=== PATIENT | male | born 1975 | race Caucasian/White ===

== ENCOUNTER 2017-04-01 10:00 | Inpatient (IN) | payer OTHER ==
--- NOTE | ~2017-04-01 | PA ---
Unit #: [id number] #: [id number] Patient: AUTUMN ALBERT [id number] [facility] [address] [place] [address] [id number] I MR#: [id number] NAME: AUTUMN ALBERT. ROOM: [facility] Age: 41 Sex: M Admission Date: 04/01/2017 : 1975 Date of Assessment: 04/02/2017 Attending Physician: Autumn Motta M.D. Admitting Physician: Autumn Motta M.D. Primary Care Physician: Primary Care Physician No PSYCHIATRIC ASSESSMENT IDENTIFYING INFORMATION The patient is a 41-year-old homeless white male admitted following a heroin overdose. CHIEF COMPLAINT Overdose INFORMANT The patient, reliability is fair. HISTORY OF PRESENT ILLNESS The patient is a 41-year-old white male last discharged from this facility in September of this year. He has a history of methamphetamine and alcohol use but reports that he recently relapsed on heroin. He unintentionally overdosed yesterday and required three shots of Narcan to revive. The patient reports that this was not a suicide attempt and denies current suicidal or homicidal ideation. He also reports that he has been abusing alcohol and Xanax. The patient's currently prescribed medications include trazodone and Cymbalta as well as Keppra. As noted previously the patient is currently homeless and is expressing interest in residential chemical dependence treatment. He did complete recovery works approximately one and half years ago. For more complete history of present illness please refer to previous dictated notes. PAST PSYCHIATRIC HISTORY Reviewed no changes. PAST MEDICAL HISTORY Reviewed no changes. MEDICATIONS Trazodone, Cymbalta, lisinopril, Clonidine, Keppra, Celexa. ALLERGIES None. FAMILY HISTORY Reviewed no changes. SOCIAL HISTORY Reviewed no changes. MENTAL STATUS EXAMINATION At this time reveals the patient to be a well-developed, well-nourished Unit #: [id number] #: [id number] Patient: AUTUMN ALBERT white male, appearing his stated age. Of note are two large abrasions on the patient's forehead where he fell forward after overdosing. The patient is awake, alert, oriented in spheres. His mood is euthymic. His affect congruent. Speech is generally relevant and coherent. There are no gross deficits to memory or cognition noted. Intelligence is judged to be in the average range based on fund of knowledge. The patient is cooperative throughout the interview. He is currently reporting no suicidal or homicidal ideation or psychotic features. Judgment and insight appear to be intact. ASSETS AND LIABILITIES ASSETS: Motivation for change. LIABILITIES: Homelessness, lack or resources. DIAGNOSTIC IMPRESSION Opioid use disorder, alcohol use disorder, sedative hypnotic use disorder, mood disorder unspecified, hypertension, seizure disorder. TREATMENT PLAN The patient remains hospitalized for safety and stabilization. We will continue home medications and a routine detoxification protocol for sedative hypnotics, alcohol and opioids have been initiated. ESTIMATED LENGTH OF STAY Five to seven days with followup to take place through the auspices of community mental health resources. Dictated by... Autumn Motta M.D. CASEY/keeley TD: 04/02/2017 22:27 JOB #: [id number] PSYCHIATRIC ASSESSMENT Page 1 of 1 X Autumn Motta MD X PSYCHIATRIC ASSESSMENT
--- NOTE | ~2017-04-01 | HP ---
Unit #: [id number] #: [id number] Patient: TYLER ALBERT [id number] [facility] [address] [place] [address] [id number] I MR#: [id number] NAME: TYLER ALBERT. ROOM: [facility] Age: 41 Sex: M Admission Date: 04/01/2017 : 1975 Attending Physician: Tyler Motta M.D. Admitting Physician: Tyler Motta M.D. Primary Care Physician: Primary Care Physician No HISTORY AND PHYSICAL HISTORY OF PRESENT ILLNESS Tyler is a 41-year-old male admitted on 04/01/2017 to [facility] for detox from alcohol, benzos, heroin and meth. PAST MEDICAL HISTORY 1. Hypertension and seizure disorder. 2. Current pneumonia diagnosed at [facility]. Please see medical consult. PAST SURGICAL HISTORY Double pneumothorax when he was 16 years old that required chest tube placement. SOCIAL HISTORY Smokes 1 pack of cigarettes daily. Drinks a fifth to a half gallon of alcohol daily. He currently is and homeless. He also reports using benzos, heroin and methamphetamine daily. FAMILY HISTORY Noncontributory. REVIEW OF SYSTEMS CONSTITUTIONAL: No fever or chills. HEENT: Denies any sore throat, ear pain or runny nose. CARDIOVASCULAR: Denies chest pain, irregular heart rhythm or palpitations. CHEST: Denies shortness of breath or cough. No hemoptysis. GASTROINTESTINAL: Denies nausea, vomiting, diarrhea or chronic constipation. ENDOCRINE: Denies history of increased thirst or urination. No recent significant weight loss or gain. GENITOURINARY: Denies dysuria, frequency, or hematuria. SKIN: Denies any rashes. HEMATOLOGIC: Denies history of increased bleeding or bruising. MUSCULOSKELETAL: Denies any hot, swollen joints. No generalized muscle pain. NEUROLOGIC: Denies problems with vision or speech. No frequent, severe headaches. No numbness, tingling or weakness in any extremities. Denies loss of bladder or bowel control. CURRENT MEDICATIONS 1. Trazodone 2. Cymbalta Unit #: [id number] #: [id number] Patient: TYLER ALBERT 3. Lisinopril 4. Clonidine 5. Keppra 6. Celexa ALLERGIES No known drug allergies. PHYSICAL EXAMINATION GENERAL: Alert, oriented, in no acute distress. VITAL SIGNS: Blood pressure 140/93, heart rate 102, respirations 18, temperature 98.1. HEIGHT: 5 foot 10 inches. WEIGHT: 150 pounds. SKIN: Warm and dry without rash or lesion. HEENT: Normocephalic. TMs not viewed. Oral and nasal passages clear. Conjunctivae clear. PERRLA. EOMs intact. NECK: Supple without lymphadenopathy or thyromegaly. HEART: Regular rate and rhythm without murmur. LUNGS: Clear. ABDOMEN: Soft, nontender, without masses or hepatosplenomegaly. : Not done. EXTREMITIES: No evidence of cyanosis, clubbing or edema. Moves all without focal deficit. NEUROLOGICAL: Grossly within normal limits. Cranial Nerves: II: Visual porter are intact. III, IV AND : Extraocular movements are intact. Pupils are equal, round and reactive to light. V: Facial sensation is grossly normal. VII: Facial movements and expression are normal. VIII: Auditory acuity grossly intact. IX, X: Uvula is midline. Phonation is normal. XI: Patient shrugs shoulders and turns head normally. XII: Tongue protrudes in the midline. Sensory and Motor Function: Sensory and motor sensation is grossly normal. Motor: moves all extremities well. Coordination: Gait is normal. Deep Tendon Reflexes: Intact. IMPRESSION Psychiatric admission. RECOMMENDATIONS Psychiatric, per psychiatrist. MEDICAL: I see no contraindications to participating in facility's activities. MEDICAL PROGNOSIS Good. MEDICAL CONDITION Stable. Dictated by... Rich CalderaPParishRKasie Unit #: [id number] #: [id number] Patient: TYLER ALBERT UYEN/keeley TD: 04/02/2017 23:16 JOB #: [id number] HISTORY AND PHYSICAL Page 1 of 1 X KALIE MCDONALD APRN HISTORY AND PHYSICAL
--- NOTE | ~2017-04-01 | A ---
[facility] Nutrition Therapy DATE: 04/03/17 Patient: AUTUMN ALBERT Physician: DI Address: 2011 [facility] Room/Bed: [address], Zip: [place] [address] Admit Date: 04/01/17 Date of : [birth year] Height: 5 10 Weight: 149 68.0388 NUTRITIONAL ASSESSMENT: REASON: UNINTENTIONAL WEIGHT LOSS PATIENT ADMITTED FOR HEROIN OVERDOSE AND POLYSUBSTANCE DETOX PMH: SEIZURE D/O, HTN Anthropometrics: HT: 70", WT: 150#, BMI: 21.5, %IBW: 90 Labs: NO NEW LABS Meds: DESYREL, KEPPRA, ZESTRIL, DETOX PROTOCOL Assessment: PATIENT IS A 41 Y/O MALE ADMITTED FOR HEROIN OVERDOSE AND POLYSUBSTANCE DETOX. PATIENT IS CURRENTLY UNEMPLOYED, HOMELESS, SMOKES 1 PPD, DRINKS 1/2 GALLON ETOH DAILY, HAS DAILY HEROIN USE, AND FREQUENT MARIJUANA, METH, XANAX, AND SYNTHETIC SUBSTANCE ABUSE. PER NEEDS ASSESSMENT PATIENT STATED A FAIR APPETITE WITH A 203 WEIGHT LOSS OVER LAST 6 MONTHS, AND HE HAS NOT BEEN SLEEPING. WEIGHT HX PER MEDITECH SHOWS NO WEIGHT CHANGES SINCE LAST ADMIT 6 MONTHS AGO AND A 3# WEIGHT GAIN X 1 YEAR. NURSING REPORTS GOOD PO INTAKES. CURRENT PSYCH MEDS MAY CAUSE WEIGHT AND APPETITE FLUCTUATIONS. THERE ARE NO SKIN OR GI ISSUES NOTED ATT. PATIENT DOES CURRENTLY HAVE PNEUMONIA AND IS ON ANTIBIOTICS. PATIENT IS ON A REGULAR DIET. Dx: NO NUTRITION DX Intervention: REGULAR DIET, MEDS PER MD, DETOX, PSYCH Monitoring, Evaluation and Goals: 1. ADEQUATE PO INTAKES >50% OF MEALS 2. PREVENT, CORRECT MICRO/MACRO NUTRIENT DEFICIENCIES 3. WEIGHT; MAINTAIN CURRENT WEIGHT MONITOR: WEIGHTS, LABS, PO/FLUID INTAKES Recommendations: 1. CONTINUE REGULAR DIET TOLERATED. OFFER SNACKS BETWEEN MEALS. IF PATIENT HAS C/O HUNGER PLEASE SEND ORDER FOR LARGE PORTION ENTREES AND RD WILL APPROVE 2. ENCOURAGE ADEQUATE PO AND FLUID INTAKES 3. OBTAIN WEIGHTS ROUTINELY (EVERY 3-4 DAYS) [facility] Nutrition Therapy DATE: 04/03/17 Patient: AUTUMN ALBERT Physician: DI Address: [address] [facility] Room/Bed: [address], Zip: [place] [address] Admit Date: 04/01/17 Date of : [birth year] Height: 5 10 Weight: [address] TO F/U PER PROTOCOL AND PRN R/T PATIENT NOT AT NUTRITIONAL RISK ATT Respectfully, ABELINO ULRICH, RD, LD [employer] and Nutritional Services [facility] cc: client file
--- NOTE | ~2017-04-01 | PN ---
Unit #: [id number] #: [id number] Patient: TYLER ALBERT [id number] [facility] [address] [place] [address] [id number] I MR#: [id number] NAME: TYLER ALBERT. ROOM: [facility] Age: 41 Sex: M Admission Date: 04/01/2017 : 1975 Attending Physician: Tyler Motta M.D. Admitting Physician: Tyler Motta M.D. Primary Care Physician: Primary Care Physician Hellen HAGER PROGRESS NOTES DATE 04/03/2017 DISCUSSION The patient is continuing to report significant symptoms of alcohol and opioid withdrawal but is pleasant and cooperative in her interactions with peers and staff and is active within the therapeutic milieu. He is expressing interest in residential chemical dependence treatment in the [place], [place] area and has begun with the aide of his brother investigation into such placement. Dictated by... Tyler Motta M.D. CB/keeley TD: 04/04/2017 05:57 JOB #: [id number] [facility] PROGRESS NOTES Page 1 of 1 X Tyler Motta MD PROGRESS NOTE
--- NOTE | ~2017-04-01 | DS ---
Unit #: [id number] #: [id number] Patient: AUTUMN ALBERT [id number] [facility] [address] [place] [address] [id number] I MR#: [id number] NAME: AUTUMN ALBERT. ROOM: [facility] Age: 41 Sex: M Admission Date: 04/01/2017 : 1975 Discharge Date: 04/04/2017 Attending Physician: Autumn Motta M.D. Primary Care Physician: Primary Care Physician No DISCHARGE SUMMARY REASON FOR ADMISSION The patient is a 41-year-old white male, admitted with a history of opioid and alcohol use. HOSPITAL COURSE The patient was admitted to the [facility] and placed on suicide precautions. He was continued on previously prescribed home medications including trazodone, Cymbalta, lisinopril, clonidine, Keppra, and Celexa. The patient exhibited little in the way of signs or symptoms of withdrawal, though he did complain of shaking as he demanded that he would be given Ativan for his anxiety but was politely informed that he was not meeting criteria for continued administration of this medication. Upon learning this, the patient demanded discharge from the hospital. He denied suicidal ideation. The danger of untreated alcohol and sedative hypnotic withdrawal was discussed with the patient and the patient's discharge was made against medical advice. 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 DISPOSITION ON DISCHARGE The patient is discharged against medical advice. The patient will continue previously prescribed medications including Desyrel 100 mg at h.s. p.r.n. insomnia, Cymbalta 30 mg daily for depression, Zestril 10 mg once daily for hypertension, Keppra 500 mg b.i.d. for seizure disorder, Celexa 40 mg once daily for depression, Catapres 0.1 mg t.i.d. daily for hypertension, and Augmentin 875 mg b.i.d. for injection site abscess. DISCHARGE INSTRUCTIONS No dietary or physical restrictions were placed upon the patient at the time of discharge. As noted previously, the patient's discharge is against medical advice and the patient is apprised of the risks of untreated alcohol and sedative hypnotic withdrawal including seizures, DTs, and . Dictated by... Autumn Motta M.D. CB/pattie Unit #: [id number] #: [id number] Patient: AUTUMN ALBERT TD: 04/04/2017 15:48 JOB #: [id number] DISCHARGE SUMMARY Page 1 of 1 X Autumn Motta MD X DISCHARGE SUMMARY
--- NOTE | ~2017-04-01 | CO ---
Unit #: [id number] #: [id number] Patient: TYLER ALBERT [id number] [facility] [address] [place] [address] [id number] I MR#: [id number] NAME: TYLER ALBERT. ROOM: P183 Age: 41 Sex: M Admission Date: 04/01/2017 : 1975 Attending Physician: Tyler Motta M.D. Primary Care Physician: Primary Care Physician No Consultation Date: 04/01/2017 CONSULTATION REPORT HISTORY OF PRESENT ILLNESS Tyler reports that he OD'd yesterday on heroine and was taken to [facility] ER where he was coded and did receive chest compression. He did receive an x-ray that showed possible pneumonia. This was verified by CT of chest, [facility] called today to discuss this. Tyler reports that he is not having any shortness of air, does have some chest pain, but believes that is likely due to chest compression and has also had some coughing. He has a history of double pneumothorax when he was 16 years old spontaneous. He reports a family history of pneumothorax as well. No other complaints. PHYSICAL EXAMINATION CARDIAC: Regular rate and rhythm. No murmur, gallop, or rub. RESPIRATORY: Clear to auscultation bilaterally. ASSESSMENT AND PLAN Pneumonia. We will begin Augmentin 875 mg/125 mg p.o. b.i.d. for 10 days. Please notify if the patient develops fever, shortness of breath, or if cough does not improve. Dictated by... Harley Caldera/pattie TD: 04/02/2017 01:16 JOB #: [id number] CONSULTATION REPORT Page 1 of 1 X KALIE MCDONALD APRN X CONSULTATION REPORT
[2017-04-05 10:16] LABS: AMPHETAMINE NEG (NEG); BARBITURATES POS (NEG); BENZODIAZEPINES POS (NEG); COCAINE NEG (NEG); MARIJUANA NEG (NEG); OPIATES NEG (NEG); TRICYCLIC ANTIDEPRESSANTS NEG (NEG); U METHADONE NEG (NEG)
[2017-04-07 15:51] LABS: HA AB IGM (HEPPAN) Nonreactive (()); HB CORE AB IGM (HEPPAN) Nonreactive (Nonreactive); HB S AG (HEPPAN) Nonreactive (Nonreactive); HEP C AB (HEPPAN) Reactive (Nonreactive)
== END 2017-04-04 15:35 | disposition left against medical advice (07) | DRG 894 ==
LOC: P1E 12:52
PROVIDERS: Specialist
PROC: HZ2ZZZZ Detoxification Services for Substance Abuse Treatment (ICD-10-PCS; principal; 2017-04-01)
DX: F11.10 Opioid abuse, uncomplicated (principal); J18.9 Pneumonia, unspecified organism; F13.10 Sedative, hypnotic or anxiolytic abuse, uncomplicated; F10.10 Alcohol abuse, uncomplicated; F39 Unspecified mood [affective] disorder; G40.909 Epilepsy, unspecified, not intractable, without status epilepticus; I10 Essential (primary) hypertension; Z59.0 Homelessness; F17.210 Nicotine dependence, cigarettes, uncomplicated; T40.1X1D Poisoning by heroin, accidental (unintentional), subsequent encounter
CPT/HCPCS: 80074; 80307; 86592; 87522; 87806

== ENCOUNTER 2017-05-16 19:23 | Inpatient (IN) | payer OTHER ==
[~2017-05-16] VITALS: Ht 177.8 cm; Wt 63.5 kg
--- NOTE | ~2017-05-16 | DS ---
Unit #: [id number] #: [id number] Patient: AUTUMN ALBERT [id number] [facility] [address] [place] [address] [id number] I MR#: [id number] NAME: AUTUMN ALBERT. ROOM: [facility] Age: 41 Sex: M Admission Date: 05/16/2017 : 1975 Discharge Date: 05/18/2017 Attending Physician: Autumn Motta M.D. Primary Care Physician: Primary Care Physician No DISCHARGE SUMMARY REASON FOR ADMISSION The patient is a 41-year-old white male admitted with recurrence of alcohol abuse. HOSPITAL COURSE The patient was admitted to the [facility] Unit and placed on routine detoxification protocol for alcohol. Her medications were continued. On 05/17/2017, the patient did have an interview with a local residential chemical dependence treatment facility and was accepted there. Discharged was scheduled to take place the following day. FINAL DIAGNOSES 1. Alcohol use disorder. 2. Mood disorder unspecified. 3. Seizure disorder. 4. Hypertension. DISPOSITION ON DISCHARGE The patient was discharged on the following medications: 1. Catapres 0.1 mg at bedtime for hypertension. 2. Keppra 500 mg twice daily for seizures. 3. Desyrel 100 mg at bedtime for p.r.n. insomnia. 4. Citalopram 40 mg daily for depression. 5. Zestril 10 mg once daily for hypertension. 6. Cymbalta 30 mg once daily for depression. DIET AND ACTIVITY No dietary or physical restrictions placed on the patient at the time of discharge. FOLLOWUP Followup will take place through the auspices of community mental health and chemical dependence treatment resources. Dictated by... Autumn Motta M.D. CB/ching TD: 05/18/2017 09:52 JOB #: [id number] Unit #: [id number] #: [id number] Patient: AUTUMN ALBERT DISCHARGE SUMMARY Page 1 of 1 X Autumn Motta MD DISCHARGE SUMMARY
--- NOTE | ~2017-05-16 | DS ---
Unit #: [id number] #: [id number] Patient: AUTUMN ALBERT [id number] [facility] [address] [place] [address] [id number] I MR#: [id number] NAME: AUTUMN ALBERT. ROOM: [facility] Age: 41 Sex: M Admission Date: 05/16/2017 : 1975 Discharge Date: Attending Physician: Autumn Motta M.D. Primary Care Physician: Primary Care Physician No DISCHARGE SUMMARY ADDENDUM DATE OF DICTATION 05/18/2017 The patient's discharge has been held by one day secondary to bed availability at the residential facility to which he will be going. He will be discharged tomorrow morning. No changes in medication will be undertaken and the patient's detox continues uneventfully. Dictated by... Autumn Motta M.D. CB/chriss TD: 05/18/2017 15:04 JOB #: [id number] DISCHARGE SUMMARY Page 1 of 1 X Autumn Motta MD X DISCHARGE SUMMARY
--- NOTE | ~2017-05-16 | HP ---
Unit #: [id number] #: [id number] Patient: TYLER ALBERT [id number] [facility] [address] [place] [address] [id number] I MR#: [id number] NAME: TYLER ALBERT. ROOM: 74 Age: 41 Sex: M Admission Date: 05/16/2017 : 1975 Attending Physician: Tyler Motta M.D. Admitting Physician: Tyler Motta M.D. Primary Care Physician: Primary Care Physician No HISTORY AND PHYSICAL HISTORY OF PRESENT ILLNESS Tyler is a 41 year old admitted to [facility] because of his continued polysubstance abuse which includes heroin and methamphetamine. He has had other admissions to this facility for treatment of the same. PAST MEDICAL HISTORY 1. Long history of illicit substance abuse to include heroin and methamphetamine. 2. Hepatitis C. 3. History of withdrawal seizures. 4. History of bilateral spontaneous pneumothorax as a teenager. PAST SURGICAL HISTORY Nothing reported. ALLERGIES No known drug allergies. SOCIAL HISTORY He smokes 1 pack per day. Drinks alcohol on occasion. Admits to a long history of illicit substance abuse. FAMILY HISTORY Medically noncontributory. REVIEW OF SYSTEMS CONSTITUTIONAL: No fever or chills. HEENT: Denies any sore throat, ear pain or runny nose. CARDIOVASCULAR: Denies chest pain, irregular heart rhythm or palpitations. CHEST: Denies shortness of breath or cough. No hemoptysis. GASTROINTESTINAL: Denies nausea, vomiting, diarrhea or chronic constipation. ENDOCRINE: Denies history of increased thirst or urination. No recent significant weight loss or gain. GENITOURINARY: Denies dysuria, frequency, or hematuria. SKIN: Denies any rashes. HEMATOLOGIC: Denies history of increased bleeding or bruising. MUSCULOSKELETAL: Denies any hot, swollen joints. No generalized muscle pain. NEUROLOGIC: Denies problems with vision or speech. No frequent, severe headaches. No numbness, tingling or weakness in any extremities. Denies loss of bladder or bowel control. Unit #: [id number] #: [id number] Patient: TYLER ALBERT CURRENT MEDICATIONS 1. Detox protocol. 2. Zestril 10 mg daily. 3. Celexa 40 mg daily. PHYSICAL EXAMINATION GENERAL: Alert, well-nourished, in no apparent distress. VITAL SIGNS: Blood pressure 120/90, heart rate 96, respirations 16, temperature 98.6. WEIGHT: 140. HEIGHT: 5 feet 10 inches. SKIN: Warm and dry without rash or lesion. HEENT: Normocephalic. TMs not viewed. Oral and nasal passages clear. Conjunctivae clear. PERRLA. EOMs intact. NECK: Supple without lymphadenopathy or thyromegaly. HEART: Regular rate and rhythm without murmur. LUNGS: Clear. ABDOMEN: Soft, nontender. : Not done. EXTREMITIES: No evidence of cyanosis, clubbing or edema. Moves all without focal deficit. NEUROLOGICAL: Grossly within normal limits. Cranial Nerves: II: Visual porter are intact. III, IV AND : Extraocular movements are intact. Pupils are equal, round and reactive to light. V: Facial sensation is grossly normal. VII: Facial movements and expression are normal. VIII: Auditory acuity grossly intact. IX, X: Uvula is midline. Phonation is normal. XI: Patient shrugs shoulders and turns head normally. XII: Tongue protrudes in the midline. Sensory and Motor Function: Sensory and motor sensation is grossly normal. Motor: moves all extremities well. Coordination: Gait is normal. Deep Tendon Reflexes: Intact. IMPRESSION Psychiatric admission. RECOMMENDATIONS PSYCHIATRIC: Per psychiatrist. MEDICAL: See no contraindication to participate in facility's activities. MEDICAL PROGNOSIS Good. MEDICAL CONDITION Stable. Dictated by... Daniella Alanis P.A.-C. for Qian Small/chriss TD: 05/17/2017 22:13 JOB #: [id number] Unit #: [id number] #: [id number] Patient: TYLER ALBERT HISTORY AND PHYSICAL Page 1 of 1 X Daniella Alanis HISTORY AND PHYSICAL
--- NOTE | ~2017-05-16 | DS ---
Unit #: [id number] #: [id number] Patient: AUTUMN ALBERT [id number] [facility] [address] [place] [address] [id number] I MR#: [id number] NAME: AUTUMN ALBERT. ROOM: [facility] Age: 41 Sex: M Admission Date: 05/16/2017 : 1975 Discharge Date: Attending Physician: Autumn Motta M.D. Primary Care Physician: Primary Care Physician No DISCHARGE SUMMARY REASON FOR ADMISSION The patient is a 41-year-old white male admitted with recurrence of alcohol abuse. HOSPITAL COURSE The patient was admitted to the [facility] unit and placed on routine detoxification protocol for alcohol. Home medications were continued. On 05/17, the patient did have an interview with a local residential chemical dependence treatment facility and was accepted there. Discharge was scheduled to take place the following day. DISCHARGE DIAGNOSES 1. Alcohol use disorder 2. Mood disorder, unspecified 3. Seizure disorder 4. Hypertension DISPOSITION ON DISCHARGE The patient is discharged home DISCHARGE MEDICATIONS 1. Catapres 0.1 mg at bedtime for hypertension 2. Keppra 500 mg daily for seizure disorder 3. Desyrel 100 mg at bedtime for p.r.n. insomnia 4. Citalopram 40 mg daily for depression 5. Zestril 10 mg once daily for hypertension 6. Cymbalta 30 mg once daily for depression FOLLOW UP To take place through the auspices of [facility] . DIET AND ACTIVITY No dietary or physical restrictions placed on the patient at the time of discharge. Dictated by... Autumn Motta M.D. Unit #: [id number] #: [id number] Patient: AUTUMN ALBERT CB/to TD: 05/17/2017 22:31 JOB #: [id number] DISCHARGE SUMMARY Page 1 of 1 X Autumn Motta MD X DISCHARGE SUMMARY
--- NOTE | ~2017-05-16 | PA ---
Unit #: [id number] #: [id number] Patient: AUTUMN ALBERT [id number] [facility] [address] [place] [address] [id number] MR#: [id number] NAME: AUTUMN ALBERT. ROOM: [facility] Age: 41 Sex: M Admission Date: 05/16/2017 : 1975 Date of Assessment: 05/17/2017 Attending Physician: Autumn Motta M.D. Admitting Physician: Autumn Motta M.D. Primary Care Physician: Primary Care Physician No PSYCHIATRIC ASSESSMENT IDENTIFYING INFORMATION The patient is a 41-year-old white male admitted to the [address] [place] [address] with recurrent abuse of alcohol. INFORMANT(S) Patient. RELIABILITY Good. CHIEF COMPLAINT None given. HISTORY OF PRESENT ILLNESS The patient is a 41-year-old white male last discharged from this facility in March of this year. He returns having again began using alcohol at a rate of about a fifth of hard liquor on a daily basis. The patient reports that he has had recent seizures related to alcohol withdrawal. For a more complete history of present illness, please refer to previous dictated notes. PAST PSYCHIATRIC HISTORY Reviewed, no changes. FAMILY HISTORY/SOCIAL HISTORY Reviewed, no changes. MEDICAL HISTORY Reviewed, no changes. MEDICATION HISTORY 1. Clonidine. 2. Keppra. 3. Trazodone. 4. Celexa. 5. Lisinopril. 6. Cymbalta. ALLERGIES None reported. MENTAL STATUS EXAM At this time, reveals the patient to be a well-developed, well-nourished Unit #: [id number] #: [id number] Patient: AUTUMN ALBERT white male appearing stated age. He is in no apparent physical distress at time of examination. He is awake, alert, oriented in all spheres. His mood is mildly dysphoric. His affect congruent. Speech is generally relevant and coherent. There are no gross deficits in memory or cognition noted. Intelligence is judged to be in the average range based on fund of knowledge. The patient is cooperative throughout the interview. He is currently denying suicidal/homicidal ideation or psychotic features. Judgement and insight appear to be intact. ASSETS AND LIABILITIES Patient's assets, motivation for change. Liabilities, none noted. DIAGNOSTIC IMPRESSION 1. Alcohol use disorder. 2. Seizure disorder. 3. Mood disorder, unspecified. TREATMENT PLAN The patient remains hospitalized for safety and stabilization. It is my understanding that he has been accepted for residential treatment on the day following tomorrow and we will plan discharge to take place then. Dictated by... Autumn Motta M.D. CASEY/chriss TD: 05/17/2017 15:02 JOB #: [id number] PSYCHIATRIC ASSESSMENT Page 1 of 1 X Autumn Motta MD X PSYCHIATRIC ASSESSMENT
--- NOTE | ~2017-05-16 | A ---
[facility] Therapy DATE: 05/17/17 Patient: AUTUMN ALBERT Physician: DI Address: [address] [facility] Room/Bed: [address], Zip: [place] [address] Admit Date: 05/16/17 Date of : 75 Height: 5 10 Weight: [phone] NUTRITIONAL ASSESSMENT: REASON: UNINTENTIONAL WEIGHT LOSS PATIENT ADMITTED FOR POLYSUBSTANCE ABUSE PMH: SEIZURE DISORDER, HTN Anthropometrics: HT: 70', WT: 140#, BMI: 20.1 Labs: 05/17/17- NUTRITIONAL LABS ESSENTIALLY WNL Meds: DESYREL, CYMBALTA, CELEXA, KEPPRA, DETOX PROTOCOL Assessment: PATIENT IS A 41 Y/O MALE ADMITTED FOR POLYSUBSTANCE ABUSE. PATIENT IS CURRENTLY UNEMPLOYED, HOMELESS, SMOKES 1 PPD, DRINKS 2 FIFTHS ETOH DAILY, HAS DAILY HEROIN USE, AND FREQUENT USE OF AMPHETAMINES, BENZOS, AND SYNTHETIC SUBSTANCES. HE HAS A HX OF INPATIENT PSYCH AND CHEMICAL DEPENDENCY TREATMENTS, AND IT IS NOTED THAT HE HAS BEEN NON-COMPLIANT WITH HIS MEDICATIONS. UPON ADMIT PATIENT STATED A POOR APPETITE WITH A 20# WEIGHT LOSS OVER LAST SEVERAL MONTHS, AND HE IS NOT SLEEPING. WEIGHT HX PER MEDITECH SHOWS A 10# WEIGHT LOSS SINCE HIS LAST ADMIT 2 MONTHS AGO. NURSING REPORTS FAIR PO INTAKES. PATIENT IS ACTIVELY DETOXING. CURRENT PSYCH MEDS MAY CAUSE WEIGHT AND APPETITE FLUCTUATIONS. PATIENT IS ON A REGULAR DIET WITH NO CAFFEINE. THERE ARE NO SKIN ISSUES NOTED ATT. RD ASSESSED PATIENT ON 10/10/16 AND 04/03/17- NOTES REVIEWED. THIS RD SUSPECTS WEIGHTS AND APPETITE WILL STABILIZE AND POSSIBLY INCREASE FOLLOWING DETOX. Dx: UNINTENTIONAL WEIGHT LOSS R/T POLYSUBSTANCE ABUSE, CURRENT CONDITION AEB SELF-REPORTED WEIGHT LOSS, DECREASED APPETITE, NUTRITIONAL RISK POINT Intervention: REGULAR DIET, MEDS PER MD, DETOX, PSYCH Monitoring, Evaluation and Goals: 1. ADEQUATE PO INTAKES >50% OF MEALS 2. PREVENT, CORRECT MICRO/MACRO NUTRIENT DEFICIENCIES 3. WEIGHT; MAINTAIN CURRENT WEIGHT, PREVENT FURTHER WEIGHT LOSS MONITOR: WEIGHTS, LABS, PO/FLUID INTAKES Recommendations: 1. CONTINUE REGULAR DIET WITH NO CAFFEINE TOLERATED. OFFER SNACKS BETWEEN MEALS. WILL INCREASE ENTREES TO LARGER PORTIONS. [facility] DATE: 05/17/17 Patient: AUTUMN ALBERT Physician: DI Address: [address] [facility] Room/Bed: [address], Zip: [place] [address] Admit Date: 05/16/17 Date of : 75 Height: 5 10 Weight: 139 63.66826 2. ENCOURAGE AEQUATE PO AND FLUID INTAKES 3. OBTAIN WEIGHTS ROUTINELY (EVERY 3-4 DAYS) 4. IF PO INTAKES ARE BELOW 50% OF MEALS PLEASE ORDER ENSURE BID TO PROMOTE ADEQUATE KCAL AND PROTEIN INTAKES RD TO F/U PER PROTOCOL AND PRN R/T PATIENT MILDLY COMRPOMISED Respectfully, ABELINO ULRICH, RD, LD [facility] cc: client file
[2017-05-17 09:55] LABS: BASOPHIL% 0.7 % (0-2.5); EOSINOPHIL# 0.2 X10e3 (0-0.7); EOSINOPHIL% 3.9 % (0.0-7.0); HEMATOCRIT 38.6 % (38.0-50.0); HEMOGLOBIN 13.6 gm/dL (13.0-16.0); LYMPHOCYTE# 1.4 X10e3 (1.0-3.5); LYMPHOCYTE% 31.6 % (17.0-45.0); MEAN CELL VOLUME 91.7 FL (83-96); MEAN CORPUSCULAR HEMOGLOBIN 32.4 PG (28-34); MEAN CORPUSCULAR HGB CONC 35.3 g/dL (30-36); MEAN PLATELET VOLUME 8.5 FL (6.5-11.5); MONOCYTE# 0.4 X10e3 (0-1.0); MONOCYTE% 9.7 % (3.0-12.0); NEUTROPHIL# 2.5 X10e3 (1.5-7.1); NEUTROPHIL% 54.1 % (40-75); PLATELET COUNT 178 X10e3 (140-420); RED BLOOD COUNT 4.21 X10e (3.90-5.60); RED CELL DISTRIBUTION WIDTH 13.7 % (11.0-15.5); WHITE BLOOD COUNT 4.5 X10e3 (4.0-10.5)
[2017-05-17 10:01] LABS: DIFF IND NO
[2017-05-17 10:11] LABS: ALBUMIN SERUM 3.8 g/dL (3.5-5.0); BILIRUBIN,TOTAL 0.6 mg/dL (0.2-2.0); BUN/CREATININE RATIO 18.57; CALCIUM SERUM 8.9 mg/dL (8.4-10.2); CREATININE SERUM 0.7 mg/dL (0.6-1.4); GLOM FILT RATE Estimated 117.3 mL/min (>60); PROTEIN TOTAL SERUM 6.3 g/dL (6.0-8.3)
[2017-05-17 12:38] LABS: URINE APPEARANCE CLEAR; URINE BILIRUBIN NEG (NEG); URINE BLOOD NEG (NEG); URINE COLOR YELLOW; URINE GLUCOSE NEG (NEG); URINE KETONE NEG (NEG); URINE LEUKOCYTE ESTERASE NEG (NEG); URINE NITRATE NEG (NEG); URINE PH 7.5 (5-8); URINE PROTEIN NEG (NEG); URINE SPECIFIC GRAVITY 1.005 (1.003-1.035); URINE UROBILINOGEN 0.2 MG/DL (NEG)
[2017-05-17 12:54] LABS: AMPHETAMINE NEG (NEG); BARBITURATES NEG (NEG); BENZODIAZEPINES POS (NEG); COCAINE NEG (NEG); MARIJUANA NEG (NEG); OPIATES NEG (NEG); TRICYCLIC ANTIDEPRESSANTS NEG (NEG); U METHADONE NEG (NEG)
== END 2017-05-19 09:34 | DRG 897 ==
LOC: P1E 22:00
PROVIDERS: Specialist
PROC: HZ2ZZZZ Detoxification Services for Substance Abuse Treatment (ICD-10-PCS; principal; 2017-05-16)
DX: F10.10 Alcohol abuse, uncomplicated (principal); F11.10 Opioid abuse, uncomplicated; F39 Unspecified mood [affective] disorder; I10 Essential (primary) hypertension; G40.909 Epilepsy, unspecified, not intractable, without status epilepticus; F15.10 Other stimulant abuse, uncomplicated; Z86.19 Personal history of other infectious and parasitic diseases; F17.200 Nicotine dependence, unspecified, uncomplicated
CPT/HCPCS: 80053; 80307; 81003; 85025; 86592; J3486